=== PATIENT | male | born 1940 ===

== ENCOUNTER 2021-05-26 06:22 | Day surgery (SDC) | payer OTHER | END 2021-05-26 11:00 | disposition home or self-care (01) | LOC: CIR.AMB 06:22 → AMB-ENDOS 06:22 → CIR.AMB 11:30 | PROVIDERS: ATTEND Colon & Rectal Surgery | DX: D12.0 Benign neoplasm of cecum (principal); D12.2 Benign neoplasm of ascending colon; K64.0 First degree hemorrhoids; Z20.822 Contact with and (suspected) exposure to COVID-19 ==